=== PATIENT | male | born 1980 | race Caucasian/White ===

== ENCOUNTER 2020-04-22 12:14 | Emergency (ER) | payer OTHER ==
[2020-04-22 12:24] VITALS: BP 121/52; PULSE 83; TEMP 98.1; BMI 30.3
== END 2020-04-22 13:24 | disposition home or self-care (01) ==
LOC: JER 12:14
DX: U07.1 COVID-19 (principal)
CPT/HCPCS: 87804; 99283-25; C9803; U0003

== ENCOUNTER 2020-09-02 19:00 | Emergency (ER) | payer OTHER ==
[2020-09-02 19:08] VITALS: BP 114/59; PULSE 85; TEMP 98; BMI 30.3
== END 2020-09-02 20:10 | disposition home or self-care (01) ==
LOC: JERFT 19:00
DX: L23.9 Allergic contact dermatitis, unspecified cause (principal)
CPT/HCPCS: 99283-25